=== PATIENT | female | born 1965 | race American Indian/Alaskan Native ===

== ENCOUNTER 2022-02-08 14:53 | Emergency (ER) | payer MEDICARE ==
[2022-02-08 16:24] LABS: ESTIMATED GFR 87 mL/min (>60)
== END 2022-02-08 17:23 | disposition home or self-care (01) ==
LOC: JP.ED 14:53
DX: K70.10 Alcoholic hepatitis without ascites (principal); F10.920 Alcohol use, unspecified with intoxication, uncomplicated; Z79.899 Other long term (current) drug therapy; Z87.891 Personal history of nicotine dependence; Z20.822 Contact with and (suspected) exposure to COVID-19
CPT/HCPCS: 36415; 70450; 80053; 80305; 80307; 81001; 84443; 85025; 99285; U0002